=== PATIENT | male | born 1995 | race Caucasian/White ===

== ENCOUNTER → 2017-04-19 | Outpatient (CLI) | payer BC ==
[2017-04-19 13:47] LABS: HCT 43.1 % (39.0-53.0); HGB 14.2 gm/dL (13.0-17.5); MCH 31.6 pg (25.0-35.0); MCHC 33.1 g/dL (31.0-37.0); MCV 95.8 fL (80.0-100.0); Mean Platelet Volume 7.4; Platelet Count 228 k/uL (150-450); WBC 5.8 k/uL (3.8-10.6)
[2017-04-19 14:01] LABS: ALT 22 U/L (21-72); AST 17 U/L (17-59); Albumin 4.8 g/dL (3.5-5.0); Alkaline Phosphatase 62 U/L (38-126); Anion Gap 12 mmol/L; Blood Urea Nitrogen 11 mg/dL (9-20); Carbon Dioxide 29 mmol/L (22-30); Chloride 101 mmol/L (98-107); Glucose 91 mg/dL (74-99); Potassium 4.7 mmol/L (3.5-5.1); Sodium 142 mmol/L (137-145); Total Bilirubin 0.6 mg/dL (0.2-1.3); Total Protein 7.5 g/dL (6.3-8.2)
--- NOTE | 2017-04-19 14:33 | CT ---
EXAMINATION TYPE: CT abdomen pelvis w con DATE OF EXAM: 04/19/2017 COMPARISON: NONE HISTORY: Generalized abdominal pain per patient and order CT DLP: 417.0 mGycm, Automated Exposure Control for Dose Reduction was Utilized. CONTRAST: CT scan of the abdomen and pelvis is performed with oral and with IV Contrast, patient injected with 100 mL of Omnipaque 300. FINDINGS: LUNG BASES: No significant abnormality is appreciated. LIVER/GB: No significant abnormality is appreciated. PANCREAS: No significant abnormality is seen. SPLEEN: No significant abnormality is seen. ADRENALS: No significant abnormality is seen. KIDNEYS: No significant abnormality is seen. BOWEL: Normal-appearing appendix is seen inferiorly from cecum. Oral contrast reaches level of cecum. There is no suspicious small or large bowel dilatation. PROSTATE/SEMINAL VESICLES: No gross abnormality seen. LYMPH NODES: No greater than 1cm abdominal or pelvic lymph nodes are appreciated. OSSEOUS STRUCTURES: No significant abnormality is seen. OTHER: There are scattered left-sided pelvic phleboliths. IMPRESSION: No significant acute finding is seen to account for patient's clinical symptoms. Results communicated to ordering physician phlebotomist medical lab assistant via telephone at time of dictation.
== END | disposition home or self-care (01) ==
LOC: RADCTMAIN 11:47
PROVIDERS: ATTEND Physician Assistant Medical
DX: R10.84 Generalized abdominal pain (principal)
CPT/HCPCS: 80053; 85027; 74177; 36415; Q9967